=== PATIENT | male | born 1955 | race Two or more races ===

== ENCOUNTER 2024-03-10 05:20 | Day surgery (SDC) | payer OTHER ==
[~2024-03-10] VITALS: Ht 182.9 cm; Wt 136.1 kg
[~2024-03-10 05:20] MED LIST: AVAPRO300 MG PO; INTEGRA PLUS C1 EACH PO; PROTONIX40 MG PO
[2024-03-10] MEDS ORDERED: METRONIDAZOLE/SODIUM CHLORIDE 500 MG/100 ML PIGGYBACK IV ONE (09:45)
[2024-03-10] MEDS ORDERED: POVIDONE-IODINE 118 ML BOTT TOP ONE (09:45)
[2024-03-10] MEDS ORDERED: HEMOSTATIC MATRIX 1 KIT KIT TOP ONE (09:45)
[2024-03-10] MEDS ORDERED: LIDOCAINE HCL 1%/EPINEPHRINE 20ML VIAL IJ ONE (09:45)
[2024-03-10] MEDS ORDERED: CEFTRIAXONE SODIUM 2,000 MG VIAL IV ONE (09:45)
[2024-03-10] MEDS ORDERED: DIBUCAINE 30 GM TUBE RECTAL ONE (09:45)
[2024-03-10] MEDS ORDERED: HYDROGEN PEROXIDE 118 ML SOLUTION TOP ONE (09:45)
[2024-03-10] MEDS ORDERED: OXYC1TAB9 PO (10:56)
[2024-03-10] MEDS ORDERED: TAMSULOSIN HCL 0.4 MG CAP PO ONE (11:00)
== END 2024-03-10 14:20 | disposition home or self-care (01) ==
LOC: CIR.AMB 05:20
PROVIDERS: ATTEND Surgery
DX: K60.3 Anal fistula (principal); K62.89 Other specified diseases of anus and rectum; Z86.010 Personal history of colon polyps; D12.8 Benign neoplasm of rectum; K57.30 Diverticulosis of large intestine without perforation or abscess without bleeding

== ENCOUNTER 2024-06-23 06:43 | Day surgery (SDC) | payer OTHER ==
[~2024-06-23 06:43] MED LIST changes: +OXYC1TAB9 PO
[2024-06-23] MEDS ORDERED: CEFTRIAXONE SODIUM 2,000 MG VIAL IV SCH (12:00)
[2024-06-23] MEDS ORDERED: HEMOSTATIC MATRIX 1 KIT KIT TOP ONE (12:00)
[2024-06-23] MEDS ORDERED: POVIDONE-IODINE 118 ML BOTT TOP ONE (12:00)
[2024-06-23] MEDS ORDERED: BUPIVACAINE HCL 30 ML VIAL IJ ONE (12:00)
[2024-06-23] MEDS ORDERED: DIBUCAINE 30 GM TUBE RECTAL ONE (12:00)
[2024-06-23] MEDS ORDERED: LIDOCAINE HCL 1%/EPINEPHRINE 20ML VIAL IJ ONE (12:00)
[2024-06-23] MEDS ORDERED: METRONIDAZOLE/SODIUM CHLORIDE 500 MG/100 ML PIGGYBACK IV SCH (12:00)
[2024-06-23] MEDS ORDERED: TAMSULOSIN HCL 0.4 MG CAP PO ONE (12:15)
[2024-06-23] MEDS ORDERED: OXYCODONE HCL5 MG PO (13:24)
== END 2024-06-23 16:55 | disposition home or self-care (01) ==
LOC: CIR.AMB 06:43
PROVIDERS: ATTEND Surgery
DX: K60.30 Anal fistula, unspecified (principal); K62.89 Other specified diseases of anus and rectum